=== PATIENT | male | born 1980 | race Caucasian/White ===

== ENCOUNTER 2019-04-26 21:02 | Emergency (ER) | payer BC ==
[~2019-04-26] VITALS: Ht 187.9 cm; Wt 90.7 kg
--- NOTE | ~2019-04-26 | EKG ---
[place], [place] ELECTROCARDIOGRAM REPORT NAME: GEORGI VELA UNIT #: [id number] ROOM: DOCTOR: EPIPHANY DRAFT REPORT BIRTHDATE: [birth year] [facility] Test Date: 2019-04-26 Test Time: 22:17:20 Pat Name: GEORGI VELA Department: ER Room: Gender: Materials Tech: Jonathan Gonzales : 1980 Requested By: WILMER RUVALCABA Order Number: [id number] Reading MD: Riley Whitley MD Measurements Intervals [place] Rate: 84 P: 22 WY: 145 QRS: 55 QRSD: 85 T: 26 QT: 366 QTc: 433 Interpretive Statements Sinus rhythm Consider left ventricular hypertrophy ST elev, probable normal early repol pattern Electronically Signed On 04-27-2019 8:14:10 PDT by Riley Whitley MD CM:EKGRPT:ELECTROCARDIOGRAM REPORT [id number] WILMER ALCANTAR DRAFT REPORT WILMER RUVALCABA DO
[~2019-04-26 21:02] MED LIST: MOTRIN800 MG PO; ROBAXIN750 MG PO
[2019-04-26 22:32] LABS: BASO % 0.3 % (0.0-1.0); EOS % 0.2 % (1.0-4.0); HEMATOCRIT 44.5 % (42.0-52.0); HEMOGLOBIN 14.7 g/dl (14.0-18.0); LYMPH # 1.1 10*3/uL (1.3-4.4); MEAN CELL VOLUME 92.1 fl (80.0-94.0); MEAN CORPUSCULAR HGB 30.4 pg (27.0-31.0); MEAN PLATELET VOLUME 9.7 fl (9.6-12.3); MONO # 0.4 10*3/uL (0.1-1.0); MONO % 3.1 % (3.0-9.0); NEUT # 9.7 10*3/uL (2.3-7.9); NEUT % 86.1 % (47.0-73.0); PLATELET COUNT AUTOMATED 278 10*3/uL (130-400); RED BLOOD COUNT 4.83 10*6/uL (4.50-5.90); RED CELL DISTRI WIDTH 12.5 % (0-14.5); WHITE BLOOD COUNT 11.3 10*3/uL (4.8-10.8)
[2019-04-26 22:49] LABS: ALBUMIN 4.2 gm/dl (3.1-4.5); ALKALINE PHOSPHATASE 78 U/L (45-117); BUN 20 mg/dl (7-24); CHLORIDE 106 mmol/L (98-107); LIPASE 76 U/L (73-393); POTASSIUM 3.8 mmol/L (3.5-5.1); SGOT/AST 17 IU/L (3-35); SGPT/ALT 33 U/L (12-78); SODIUM 140 mmol/L (136-145)
[2019-04-26 22:52] LABS: TROPONIN I < 0.015 ng/ml (<0.045)
[2019-04-26 22:56] LABS: THYROID STIM HORMONE (HS) 0.365 uIU/ml (0.358-4.75)
[2019-04-26 23:51] LABS: BILIRUBIN NEGATIVE (NEGATIVE); BLOOD NEGATIVE (NEGATIVE); CLARITY CLEAR (CLEAR); COLOR YELLOW (YELLOW); GLUCOSE TRACE (NEGATIVE); KETONE TRACE (NEGATIVE); LEUKO ESTERASE NEGATIVE (NEGATIVE); NITRITE NEGATIVE (NEGATIVE); SPECIFIC GRAVITY 1.025 (1.005-1.030); UROBILINOGEN 0.2 E.U./dl (0.2-1.0)
== END 2019-04-27 01:12 | disposition home or self-care (01) ==
LOC: ED 21:02
PROVIDERS: Emergency Medicine
DX: E86.0 Dehydration (principal); R42 Dizziness and giddiness; R51 Headache; R11.2 Nausea with vomiting, unspecified

== ENCOUNTER 2023-04-09 18:39 | Emergency (ER) | payer OTHER, BC ==
[~2023-04-09] VITALS: Ht 182.8 cm; Wt 90.7 kg
[2023-04-09] MEDS ORDERED: NAPROSYN500 MG PO (20:12)
[2023-04-09] MEDS ORDERED: CYCLOBENZAPRINE10 MG PO (20:12)
== END 2023-04-09 20:17 | disposition home or self-care (01) ==
LOC: ED 18:39
DX: R07.89 Other chest pain (principal); Z98.890 Other specified postprocedural states

== ENCOUNTER 2024-02-20 09:42 | Emergency (ER) | payer BC ==
[~2024-02-20] VITALS: Ht 190.5 cm; Wt 90.7 kg
[~2024-02-20 09:42] MED LIST changes: +CYCLOBENZAPRINE10 MG PO; +NAPROSYN500 MG PO
[2024-02-20] MEDS ORDERED: Acetaminophen/Oxycodone 5 MG/325 MG TABLET PO ONE (10:10)
[2024-02-20] MEDS ORDERED: MELOXICAM15 MG PO (10:23)
== END 2024-02-20 10:20 | disposition home or self-care (01) ==
LOC: ED 09:42
DX: S93.402A Sprain of unspecified ligament of left ankle, initial encounter (principal); Z98.890 Other specified postprocedural states; X50.1XXA Overexertion from prolonged static or awkward postures, initial encounter; Y93.67 Activity, basketball; Y92.310 Basketball court as the place of occurrence of the external cause; Y99.8 Other external cause status

== ENCOUNTER → 2024-05-22 | Outpatient (CLI) | payer BC ==
[~2024-05-22] MED LIST changes: +MELOXICAM15 MG PO
== END | disposition home or self-care (01) ==
LOC: RAD 12:29
PROVIDERS: ATTEND Nurse Practitioner Family
DX: R06.02 Shortness of breath (principal); R05.1 Acute cough

== ENCOUNTER → 2024-06-01 | Outpatient (CLI) | payer BC ==
[2024-06-01 11:06] LABS: FREE T4 1.73 ng/dl (0.89-1.76)
== END | disposition home or self-care (01) ==
LOC: LAB 09:32
PROVIDERS: ATTEND Internal Medicine Endocrinology, Diabetes & Metabolism
DX: E03.9 Hypothyroidism, unspecified (principal)

== ENCOUNTER 2024-09-24 09:09 | Emergency (ER) | payer BC ==
[~2024-09-24] VITALS: Ht 187.9 cm; Wt 95.3 kg
== END 2024-09-24 10:13 | disposition home or self-care (01) ==
LOC: ED 09:09
DX: S01.01XA Laceration without foreign body of scalp, initial encounter (principal); Z98.890 Other specified postprocedural states; W01.10XA Fall on same level from slipping, tripping and stumbling with subsequent striking against unspecified object, initial encounter; Y93.67 Activity, basketball; Y92.320 Baseball field as the place of occurrence of the external cause; Y99.8 Other external cause status